=== PATIENT | male | born 1980 | race Asian ===

== ENCOUNTER 2021-03-08 18:07 | Emergency (ER) | payer MEDICAID ==
[~2021-03-08] VITALS: Ht 167.6 cm; Wt 66.0 kg
[2021-03-08 18:35] VITALS: BP 138/103
[2021-03-08] MEDS ORDERED: AMOX-424 MT (20:44)
[2021-03-08] MEDS ORDERED: AMOXICILLIN/POTASSIUM CLAVULANATE 875/125MG TAB PO ONE (20:45)
[2021-03-08] MEDS ORDERED: OFLO5DRO4 RIGHT EAR (20:46)
== END 2021-03-08 21:34 | disposition home or self-care (01) ==
LOC: ER 18:07
DX: H60.91 Unspecified otitis externa, right ear (principal)
CPT/HCPCS: 99283

== ENCOUNTER 2021-03-27 15:44 | Emergency (ER) | payer MEDICAID ==
[~2021-03-27] VITALS: Ht 172.7 cm; Wt 79.0 kg
[~2021-03-27 15:44] MED LIST: AMOX-424 MT; OFLO5DRO4 RIGHT EAR
[2021-03-27] MEDS ORDERED: CIPHCO RIGHT EAR (17:35)
[2021-03-27] MEDS ORDERED: HYDR453.3 TP (17:35)
[2021-03-27 19:45] LABS: BASOPHILS % 0.2 % (0.0-2.0); EOSINOPHILS % 7.9 % (0.0-5.0); HEMATOCRIT. 50.7 % (42.0-52.0); HEMOGLOBIN. 17.1 g/dL (14.0-18.0); LYMPHOCYTES % 15.9 % (20.0-50.0); MEAN CORPUSCULAR HEMOGLOBIN 28.7 pg (28.0-32.0); MEAN PLATELET VOLUME 8.2 fl (7.4-10.4); MONOCYTES % 7.6 % (2.0-8.0); NEUTROPHILS % 68.4 % (40.0-76.0); PLATELET 332 x1000/uL (130-400); RED BLOOD CELL COUNT 5.97 mill/uL (4.7-6.1); RED CELL DISTRIBUTION WIDTH 13.1 % (11.6-14.6)
[2021-03-27 19:52] LABS: CHLORIDE 106 mEq/L (98-107)
[2021-03-27 20:50] VITALS: BP 145/96
== END 2021-03-27 20:52 | disposition home or self-care (01) ==
LOC: ER 15:44
DX: H60.501 Unspecified acute noninfective otitis externa, right ear (principal); H66.91 Otitis media, unspecified, right ear; R21 Rash and other nonspecific skin eruption; Z79.899 Other long term (current) drug therapy
CPT/HCPCS: 36415; 80053; 85025; 99283

== ENCOUNTER 2023-08-09 20:13 | Emergency (ER) | payer MEDICAID ==
[~2023-08-09] VITALS: Ht 162.6 cm; Wt 65.4 kg
[~2023-08-09 20:13] MED LIST changes: +CIPHCO RIGHT EAR; +HYDR453.3 TP
[2023-08-09] MEDS: ACETAMINOPHEN 325MG TABLET PO ONE (23:26)
[2023-08-10] MEDS ORDERED: IBUP-2030 MT (01:18)
[2023-08-10 01:25] VITALS: BP 126/78; PULSE 88; RESP 14; TEMP 98.4
== END 2023-08-10 02:23 | disposition home or self-care (01) ==
LOC: ER 20:13
DX: S09.90XA Unspecified injury of head, initial encounter (principal); X58.XXXA Exposure to other specified factors, initial encounter; Y93.89 Activity, other specified; Y92.89 Other specified places as the place of occurrence of the external cause; Y99.8 Other external cause status
CPT/HCPCS: 70486; 99284